=== PATIENT | female | born 1930 | race Caucasian/White ===

== ENCOUNTER 2020-10-31 17:43 | Emergency (ER) | payer OTHER ==
[~2020-10-31 17:43] MED LIST: CALCIUM W/VIT D PO; CEFDINIR300 MG PO; CIPRO500 MG PO; FIBER PO; LOW DOSE ASPIRI81 MG PO; MULTIVITAMINS1 EAC1 PO; NIFEDIPINE ER30 M1 PO; PAXIL10 MG PO; POTASSIUM; POTASSIUM PO; PREDNISONE5 MG PO; REQUIP1 MG PO; TOPROL XL 25MG25 MG PO; VENTOLIN HFA18 GM INH; ZITHROMAX500 MG PO; ZOCOR20 MG PO; [UNRECOGNIZED DRUG - OTHER] INH
[2020-10-31 19:19] LABS: BASOPHIL 0.5 % (0-2); EOSINOPHIL 2.5 % (0-7); HCT 37.3 % (37.0-47.0); HGB 12.1 g/dl (12.5-16.0); LYMPHOCYTE 13.2 % (15-48); MCH 30.1 pg (25.0-31.0); MCHC 32.4 g/dL (32.0-36.0); MCV 92.8 fL (78.0-100.0); MPV 9.8 fL (6.0-9.5); NEUTROPHIL 68.3 % (41-80); NRBC 0; PLT 246 K/uL (150-400); RBC 4.02 M/uL (4.20-5.40); RDW 14.5 % (11.5-14.0); WBC 7.6 K/uL (4.0-10.5)
[2020-10-31 19:32] LABS: INR 0.99 (0.9-1.2); PROTHROMBIN TIME 12.4 SECONDS (11.4-13.6); PTT 35.5 SECONDS (22.2-34.7)
[2020-10-31 19:42] LABS: ALBUMIN 3.2 g/dL (3.4-5.0); BILIRUBIN - TOTAL 0.3 mg/dL (0.2-1.0); BUN/CREAT RATIO (CALC) 21.6 RATIO; CREATININE 0.88 mg/dL (0.51-0.95); GLOBULIN (CALCULATION) 3.6 g/dL; POTASSIUM 4.4 mmol/L (3.5-5.1); TOTAL PROTEIN 6.8 g/dL (6.4-8.2)
[2020-10-31 19:53] LABS: CKMB 0.7 ng/mL (0.0-3.6)
[2020-10-31 20:01] LABS: BILIRUBIN NEGATIVE (NEGATIVE); BLOOD 1+ Ery/uL (NEGATIVE); CLARITY CLEAR (CLEAR); COLOR YELLOW (YELLOW); GLUCOSE (U) NORMAL (NORMAL); LEUKOCYTES 2+ Leu/uL (NEGATIVE); NITRITE NEGATIVE (NEGATIVE); PROTEIN NEGATIVE (NEGATIVE); UROBILINOGEN 0.2 mg/dL (0.2-1.0); pH 6.5 (5.0-9.0)
[2020-10-31 20:08] LABS: BACTERIA 1+
== END 2020-10-31 21:30 | disposition other institution (70) ==
LOC: FER 17:43
PROVIDERS: Emergency Medicine; Emergency Medicine Emergency Medical Services
DX: G45.9 Transient cerebral ischemic attack, unspecified (principal); I10 Essential (primary) hypertension; R91.1 Solitary pulmonary nodule; R29.701 NIHSS score 1; Z88.0 Allergy status to penicillin; Z88.2 Allergy status to sulfonamides; Z85.118 Personal history of other malignant neoplasm of bronchus and lung; Z92.3 Personal history of irradiation; Z79.899 Other long term (current) drug therapy
CPT/HCPCS: 36415; 70450; 71045; 80053; 80061; 81001; 82550; 82553; 83874; 84484; 85025; 85610; 85730; 87088; 93005; J7030

== ENCOUNTER 2020-11-05 18:33 | Day surgery (SDCO) | payer OTHER ==
[~2020-11-05] VITALS: Ht 152.4 cm; Wt 56.8 kg
[2020-11-05 19:51] LABS: BASOPHIL 0.6 % (0-2); EOSINOPHIL 3.5 % (0-7); HCT 30.9 % (37.0-47.0); LYMPHOCYTE 11.3 % (15-48); MCH 30.1 pg (25.0-31.0); MCHC 32.4 g/dL (32.0-36.0); MCV 93.1 fL (78.0-100.0); MONOCYTE 13.8 % (0-12); MPV 9.9 fL (6.0-9.5); NEUTROPHIL 70.2 % (41-80); NRBC 0; PLT 268 K/uL (150-400); RBC 3.32 M/uL (4.20-5.40); RDW 14.7 % (11.5-14.0); WBC 7.1 K/uL (4.0-10.5)
[2020-11-05 20:11] LABS: BILIRUBIN NEGATIVE (NEGATIVE); BLOOD NEGATIVE Ery/uL (NEGATIVE); CLARITY CLEAR (CLEAR); COLOR YELLOW (YELLOW); GLUCOSE (U) NORMAL (NORMAL); LEUKOCYTES TRACE Leu/uL (NEGATIVE); NITRITE NEGATIVE (NEGATIVE); PROTEIN NEGATIVE (NEGATIVE); UROBILINOGEN 0.2 mg/dL (0.2-1.0)
[2020-11-05 20:12] LABS: ALBUMIN 3.3 g/dL (3.4-5.0); BILIRUBIN - TOTAL 0.4 mg/dL (0.2-1.0); BUN/CREAT RATIO (CALC) 25.6 RATIO; CREATININE 0.82 mg/dL (0.51-0.95); GLOBULIN (CALCULATION) 3.2 g/dL; POTASSIUM 4.1 mmol/L (3.5-5.1); TOTAL PROTEIN 6.5 g/dL (6.4-8.2)
[2020-11-05 20:20] LABS: BACTERIA TRACE; SQUAMOUS EPITHELIAL CELLS RARE
[2020-11-05 21:00] LABS: INR 0.99 (0.9-1.2); PROTHROMBIN TIME 12.4 SECONDS (11.4-13.6)
[2020-11-05 21:01] LABS: PTT 30.2 SECONDS (22.2-34.7)
[2020-11-06 00:22] LABS: HCT 30.6 % (37.0-47.0); HGB 9.8 g/dL (12.5-16.0)
[2020-11-06] MEDS ORDERED: LIPITOR40 MG PO (00:48)
[2020-11-06] MEDS ORDERED: PLAVIX75 MG PO (00:49)
[2020-11-06] MEDS ORDERED: VOLTAREN **OUT50 MG TOP (00:51)
[2020-11-06] MEDS ORDERED: VENTOLIN (2.5 MG/3 M INH (00:54)
[2020-11-06] MEDS ORDERED: ONDANSETRON HCL4 MG PO (00:55)
[2020-11-06] MEDS ORDERED: PROTONIX 40MG T40 MG PO (00:56)
[2020-11-06] MEDS ORDERED: TOPROL XL 25MG25 MG PO ×2 (00:57→00:58)
[2020-11-06 05:42] LABS: BASOPHIL 0.9 % (0-2); EOSINOPHIL 4.6 % (0-7); HCT 28.9 % (37.0-47.0); HGB 9.4 g/dl (12.5-16.0); LYMPHOCYTE 12.4 % (15-48); MCH 29.9 pg (25.0-31.0); MCHC 32.5 g/dL (32.0-36.0); MONOCYTE 15.7 % (0-12); MPV 9.8 fL (6.0-9.5); NEUTROPHIL 65.8 % (41-80); NRBC 0; PLT 258 K/uL (150-400); RBC 3.14 M/uL (4.20-5.40); RDW 14.9 % (11.5-14.0); WBC 6.9 K/uL (4.0-10.5)
[2020-11-06 06:15] LABS: IRON % SATURATION 17.4 %SAT (20-50)
[2020-11-06 06:32] LABS: BUN/CREAT RATIO (CALC) 21.4 RATIO; CREATININE 0.84 mg/dL (0.51-0.95); POTASSIUM 4.2 mmol/L (3.5-5.1)
--- NOTE | 2020-11-06 14:48 | NUR ---
MET WITH PT. TO DISCUSS NEEDS. SHE ADVISED THAT SHE HAS HOME O2, ROLLING WALKER, AND WHEELCHAIR. SHE WAS SUPPOSE TO HAVE A HH WHEN SHE CAME HOME FROM A [facility], BUT BECAUSE SHE RESIDES IN [facility], THE HH WOULD NOT COME TO THE [facility]. PT. ASKED THAT I SPEAK WITH HER DAUGHTER, WARREN. TC TO WARREN. SHE ADVISED THAT SHE REQUESTED [facility]. TC DAVID MEDELLIN, THEY WILL ACCEPT PT. PUT INFORMATION IN EMERITA.
== END 2020-11-06 14:26 | disposition home or self-care (01) ==
LOC: FER 18:33 → FMS 21:02
PROVIDERS: Emergency Medicine; Nurse Practitioner; ADMIT Internal Medicine
DX: R19.5 Other fecal abnormalities (principal); D50.9 Iron deficiency anemia, unspecified; J44.9 Chronic obstructive pulmonary disease, unspecified; I10 Essential (primary) hypertension; G25.81 Restless legs syndrome; C34.90 Malignant neoplasm of unspecified part of unspecified bronchus or lung; Z79.02 Long term (current) use of antithrombotics/antiplatelets; Z20.822 Contact with and (suspected) exposure to COVID-19; E78.5 Hyperlipidemia, unspecified; K21.9 Gastro-esophageal reflux disease without esophagitis; F15.90 Other stimulant use, unspecified, uncomplicated; Z87.891 Personal history of nicotine dependence; Z99.81 Dependence on supplemental oxygen; Z86.73 Personal history of transient ischemic attack (TIA), and cerebral infarction without residual deficits; Z88.0 Allergy status to penicillin; Z88.2 Allergy status to sulfonamides; Z79.82 Long term (current) use of aspirin; Z79.899 Other long term (current) drug therapy
CPT/HCPCS: 36415; 78278; 80048; 80053; 81001; 82728; 83540; 83550; 85014; 85018; 85025; 85610; 85730; 86850; 86900; 86901; 94010; 94640; 99285; C9113; G0378; J1642; J7512; U0002

== ENCOUNTER 2021-01-03 11:42 | Emergency (ER) | payer OTHER ==
[~2021-01-03 11:42] MED LIST changes: +LIPITOR40 MG PO; +ONDANSETRON HCL4 MG PO; +PLAVIX75 MG PO; +PROTONIX 40MG T40 MG PO; +VENTOLIN (2.5 MG/3 M INH; +VOLTAREN **OUT50 MG TOP
[2021-01-03 12:19] LABS: BASOPHIL 0.4 % (0-2); EOSINOPHIL 1.4 % (0-7); HCT 32.6 % (37.0-47.0); LYMPHOCYTE 8.2 % (15-48); MCH 27.7 pg (25.0-31.0); MCHC 30.7 g/dL (32.0-36.0); MCV 90.3 fL (78.0-100.0); MONOCYTE 15.1 % (0-12); MPV 10.6 fL (6.0-9.5); NEUTROPHIL 74.6 % (41-80); NRBC 0; PLT 219 K/uL (150-400); RBC 3.61 M/uL (4.20-5.40); RDW 14.6 % (11.5-14.0); WBC 9.7 K/uL (4.0-10.5)
[2021-01-03 12:40] LABS: ALBUMIN 3.3 g/dL (3.4-5.0); BILIRUBIN - TOTAL 0.5 mg/dL (0.2-1.0); CREATININE 0.93 mg/dL (0.51-0.95); GLOBULIN (CALCULATION) 3.3 g/dL; POTASSIUM 3.8 mmol/L (3.5-5.1); TOTAL PROTEIN 6.6 g/dL (6.4-8.2)
[2021-01-03] MEDS ORDERED: MEDROL 4MG DOSEP4 MG PO (15:29)
[2021-01-03] MEDS ORDERED: ZPAK PO (15:29)
== END 2021-01-03 16:17 | disposition home or self-care (01) ==
LOC: FER 11:42
PROVIDERS: Emergency Medicine
DX: U07.1 COVID-19 (principal); J12.82 Pneumonia due to coronavirus disease 2019; J44.9 Chronic obstructive pulmonary disease, unspecified; Z23 Encounter for immunization
CPT/HCPCS: 36415; 36600; 71046; 80053; 82803; 83605; 83880; 84145; 84484; 85025; 87040; 93005; 94760; J2405; J2930; J7050; M0243; Q0244; U0002